=== PATIENT | female | born 1985 | race Caucasian/White ===

== ENCOUNTER → 2016-05-07 | Outpatient (CLI) | payer BC ==
[2016-05-07 18:33] LABS: HEMOGLOBIN 13.9 gm/dl (12.3-15.3); RED BLOOD COUNT 4.5 M/UL (4.00-5.10)
[2016-05-07 18:48] LABS: BUN/CREATININE RATIO 20 (0-10)
== END ==
LOC: LAB 17:48
PROVIDERS: Family Medicine
DX: R00.2 Palpitations (principal); R53.83 Other fatigue; E55.9 Vitamin D deficiency, unspecified
CPT/HCPCS: 36415; 71020; 80053; 82607; 84443; 85025

== ENCOUNTER → 2016-05-17 | Outpatient (CLI) | payer BC | LOC: RT 15:53 | DX: R07.9 Chest pain, unspecified (principal); R00.2 Palpitations; R06.02 Shortness of breath | CPT/HCPCS: 93270 ==

== ENCOUNTER → 2016-05-25 | Outpatient (CLI) | payer BC | LOC: ECHO 11:30 | DX: R06.02 Shortness of breath (principal) | CPT/HCPCS: ECHO; 93306 ==

== ENCOUNTER → 2020-08-01 | Outpatient (CLI) | payer BC, OTHER ==
[~2020-08-01] MED LIST: PREDNISONE20 MG PO; VALACYCLOVIR1000 MG PO
== END ==
LOC: EXRD 12:49
DX: R06.02 Shortness of breath (principal)
CPT/HCPCS: 71046

== ENCOUNTER → 2020-08-02 | Outpatient (CLI) | payer BC, OTHER | LOC: HEART 5 14:58 | DX: R00.1 Bradycardia, unspecified (principal); R03.0 Elevated blood-pressure reading, without diagnosis of hypertension; R06.02 Shortness of breath ==

== ENCOUNTER → 2020-08-24 | Outpatient (CLI) | payer BC | LOC: HEART 5 07:49 | DX: R00.1 Bradycardia, unspecified (principal); R03.0 Elevated blood-pressure reading, without diagnosis of hypertension; R06.02 Shortness of breath; I34.0 Nonrheumatic mitral (valve) insufficiency | CPT/HCPCS: 93306 ==